=== PATIENT | male | born 1950 | race Two or more races ===

== ENCOUNTER 2018-07-19 17:51 | Emergency (ER) | payer SELFPAY ==
[2018-07-19 18:02] VITALS: BP 146/69
--- NOTE | 2018-07-19 18:08 | EDPHY ---
H & P Stated Complaint: seen at 07/07 for l dental and face pain rx amoxicillin still having pain Time Seen by Provider: 07/19/18 18:07 - Personal History Current Tetanus Diphtheria and Acellular Pertussis (TDAP): Yes - Medical/Surgical History Hx Asthma: No Hx Chronic Respiratory Disease: No Hx Diabetes: No Hx Cardiac Disease: No Hx Renal Disease: No Hx Cirrhosis: No Hx Alcoholism: No Hx HIV/AIDS: No Hx Splenectomy or Spleen Trauma: No Other PMH: denies - Social History Smoking Status: Current every day smoker Constitutional: Initial Vital Signs Temperature (C) 36.7 C 07/19/18 17:59 Heart Rate 76 07/19/18 17:59 Respiratory Rate 18 07/19/18 17:59 Blood Pressure 146/69 H 07/19/18 17:59 O2 Sat (%) 92 07/19/18 17:59 O2 Delivery Mode Room Air Allergies/Adverse Reactions: No Known Allergies Allergy (Unverified 07/19/18 17:58) Home Medications: Medication Instructions Recorded Amoxicillin/Clavulanate Pot 875 mg PO BID #20 tab 07/19/18 [Augmentin 875 MG TAB (RX)] Ibuprofen [Motrin] 800 mg PO Q8 #20 tab 07/19/18 Lidocaine 2% Viscous 5 - 10 ml PO Q6 PRN #100 ml 07/19/18 Medical Decision Making ED Course/Re-evaluation: CHIEF COMPLAINT: Dental pain HISTORY OF PRESENT ILLNESS: The patient is a 68 y/o male complaining of left facial pain. The patient was seen on 07/07/17 and given Amoxicillin. However, he is still having pain. No fever, headache, body aches, lightheadedness, chest pain, heart palpitations, shortness of breath, cough, abdominal pain, urinary or bowel complaints, numbness, paresthesias. REVIEW OF SYSTEMS: A comprehensive 10 system review of systems is otherwise negative aside from elements mentioned in the history of present illness and medical decision making. PHYSICAL EXAM: HR, BP, O2 Sat, RR. Temp noted General Appearance: Alert, well hydrated, appropriate, and non-toxic appearing. Head: Atraumatic without scalp tenderness or obvious injury Eyes: Pupils equal, round, reactive to light and accommodation, EOMI, no trauma , no injection. Ears: Clear bilaterally, no perforation, normal landmarks Nose: Atraumatic, no rhinorrhea, clear. Throat: Poor dentition with dental infection present. There is no erythema or exudates, no lesions, normal tonsils, mucus membranes moist. Neck: Supple, 2+ carotid upstroke, nontender, no lymphadenopathy. Cardiovascular: Regular rate and rhythm, no murmurs, rubs, or gallops. Bilateral carotid, radial, dorsalis pedis, and posterior tibial pulses intact. Good capillary refill all extremities. Musculoskeletal: Normal active ROM of all extremities, atraumatic. Neurological: Alert, appropriate, and interactive. The patient has normal DTRs and non-focal cranial nerves, motor, sensory, and cerebellar exam. Skin: No rashes, good turgor, no nodules on palpation. Past medical history: Denies Past surgical history: Denies Family history: Denies Social history: at bedside, lives in [place], DIAGNOSTICS/PROCEDURES/CRITICAL CARE TIME: Not indicated. DIFFERENTIAL DIAGNOSIS: The differential diagnosis for the patient's symptoms includes but is not limited to dental infection, dental trauma, dental abscess, sepsis. MEDICAL DECISION MAKING: The patient is a 68 y/o male presenting with left facial and dental pain. The patient was seen on 07/07/17 and given Amoxicillin. On exam he has very poor dentition and an infection. 1835: Reassessed patient. I will prescribe him [place], Augmentin, and Magic Mouth Wash. I have advised him to follow up with a dentist. Return precautions provided; patient is comfortable with this plan. Departure - Departure Disposition: Home, Routine, Self-Care Clinical Impression: Dental infection Condition: Good Instructions: Dental Abscess (ED), Toothache (ED), Gingivostomatitis (ED) Additional Instructions: 1. Take [place] as prescribed. 2. Take Augmentin as prescribed. 3. Use Magic Mouth Wash as prescribed. 4. Follow-up with your dentist within one week. 5. Return to the ED for fever, difficulty swallowing, increase in swelling or other concerns. 1. [place] a stuart se le short recetado. 2. Augmentin a stuart se le short recetado. 3. Use el lavado Magic Mouth Wash a stuart se le short recetado. 4. Jose seguimiento con [facility] dentista dentro de jessica semana. 5. Regrese a la aron de emergencia si tiene fiebre, dificultad para respirar, si incrementa la hinchazon o si tiene otras preocupaciones. Referrals: [facility] [Outside] - As per Instructions Prescriptions: Amoxicillin/Clavulanate Pot [Augmentin 875 MG TAB (RX)] 875 mg PO BID #20 tab Ibuprofen [Motrin] 800 mg PO Q8 #20 tab Lidocaine 2% Viscous 5 - 10 ml PO Q6 PRN #100 ml PRN Reason: Pain, Moderate Print Language: Kyrgyz Report Scribed for: Jose Armando Kern Report Scribed by: Mariam Thomas Date of Report: 07/19/18 Time of Report: 18:16
[2018-07-19] MEDS ORDERED: HYDROCOD/APAP 5/325 PREPACK#6 BTL TAKEHOME ONE ×2 (18:39→18:40)
== END 2018-07-19 18:48 | disposition home or self-care (01) ==
DX: K04.7 Periapical abscess without sinus (principal)